=== PATIENT | male | born 1955 | race Two or more races ===

== ENCOUNTER 2017-12-21 10:08 | Emergency (ER) | payer OTHER ==
[2017-12-21 12:42] LABS: ADD MAN DIFF? NO
[2017-12-21] MEDS: LIDOCAINE/MYLANTA 40 ML BTL PO (12:43)
[2017-12-21] MEDS: SOD CHLORIDE 0.9% 1,000 ML IV (12:44)
[2017-12-21] MEDS: ASPIRIN 325 MG TAB PO (12:44)
[2017-12-21 13:28] LABS: ABNORMAL IP MESSAGE 1; BASOPHILS % 0.1 % (0.0-2.0); EOSINOPHILS # 0.1 10^3/ul (0.0-0.5); EOSINOPHILS % 0.8 % (0.0-7.0); HEMATOCRIT 42.6 % (42.0-52.0); HEMOGLOBIN 14.5 g/dl (14.0-18.0); LYMPHOCYTES # 0.5 10^3/ul (0.8-2.9); LYMPHOCYTES % 3.8 % (15.0-51.0); MEAN CORPUSCULAR HEMOGLOBIN 31.9 pg (29.0-33.0); MEAN CORPUSCULAR VOLUME 93.6 fl (82.0-101.0); MEAN PLATELET VOLUME 8.6 fl (7.4-10.4); MONOCYTE # 0.6 10^3/ul (0.3-0.9); MONOCYTES % 4.8 % (0.0-11.0); NEUTROPHIL # 11.7 10^3/ul (1.6-7.5); NEUTROPHILS % 90.1 % (39.0-77.0); PLATELET COUNT 287 10^3/UL (140-415); POSITIVE DIFF @See below; RED BLOOD COUNT 4.55 10^6/ul (4.70-6.10); RED CELL DISTRIBUTION WIDTH 12.7 % (11.5-14.5)
[2017-12-21 13:38] LABS: ANION GAP 20 (8-16); BLOOD UREA NITROGEN 35 mg/dl (7-20); CALCIUM 9.7 mg/dl (8.4-10.2); CARBON DIOXIDE 23 mmol/L (21-31); CHLORIDE 100 mmol/L (97-110); CREATININE 2.02 mg/dl (0.61-1.24); GLUCOSE 171 mg/dl (70-220); SODIUM 138 mmol/L (135-144)
[2017-12-21 13:50] LABS: B-TYPE NATRIURETIC PEPTIDE 130 PG/ML (0-125); TROPONIN-I < 0.012 ng/ml (0.00-0.12)
== END 2017-12-21 15:42 | disposition home or self-care (01) ==
LOC: FTE 10:08
DX: I44.5 Left posterior fascicular block (principal); N19 Unspecified kidney failure; I10 Essential (primary) hypertension; E11.9 Type 2 diabetes mellitus without complications
CPT/HCPCS: 36415; 71045; 80048; 83880; 84484; 85025; 93005; 99285-25

== ENCOUNTER 2018-06-29 07:55 | Emergency (ER) | payer OTHER ==
[2018-06-29 08:58] LABS: OCCULT BLOOD STOOL POSITIVE (NEGATIVE)
[2018-06-29] MEDS: SOD CHLORIDE 0.9% 1,000 ML IV (09:14)
[2018-06-29 09:17] LABS: ADD MAN DIFF? NO
[2018-06-29 09:22] LABS: BASOPHILS % 0.4 % (0.0-2.0); EOSINOPHILS # 0.1 10^3/ul (0.0-0.5); EOSINOPHILS % 2.6 % (0.0-7.0); HEMATOCRIT 43.9 % (42.0-52.0); HEMOGLOBIN 14.5 g/dl (14.0-18.0); IMMATURE GRANS #M 0 10^3/ul; IMMATURE GRANS % (M) 0 %; LYMPHOCYTES # 1.2 10^3/ul (0.8-2.9); LYMPHOCYTES % 24.9 % (15.0-51.0); MEAN CORPUSCULAR HEMOGLOBIN 30.9 pg (29.0-33.0); MEAN CORPUSCULAR VOLUME 93.4 fl (82.0-101.0); MEAN PLATELET VOLUME 8.3 fl (7.4-10.4); MONOCYTE # 0.4 10^3/ul (0.3-0.9); MONOCYTES % 8.9 % (0.0-11.0); NEUTROPHIL # 3.1 10^3/ul (1.6-7.5); NEUTROPHILS % 63.2 % (39.0-77.0); PLATELET COUNT 314 10^3/UL (140-415); RED CELL DISTRIBUTION WIDTH 12.6 % (11.5-14.5)
[2018-06-29 09:22] LABS: WHITE BLOOD COUNT 4.9 10^3/ul (4.8-10.8)
[2018-06-29] MEDS: SOD CHLORIDE 0.9% 100 ML (09:45)
[2018-06-29] MEDS: IOHEXOL 300MG/ML 150 ML BTL (09:45)
[2018-06-29 09:47] LABS: ALANINE AMINOTRANSFERASE 31 IU/L (13-69); ALBUMIN/GLOBULIN RATIO 1.25; ALKALINE PHOSPHATASE 51 IU/L (42-121); ANION GAP 17 (8-16); ASPARTATE AMINO TRANSFERASE 45 IU/L (15-46); BILIRUBIN,INDIRECT 0.3 mg/dl (0-1.1); BILIRUBIN,TOTAL 0.3 mg/dl (0.2-1.3); BLOOD UREA NITROGEN 23 mg/dl (7-20); CALCIUM 9.9 mg/dl (8.4-10.2); CARBON DIOXIDE 28 mmol/L (21-31); CHLORIDE 104 mmol/L (97-110); CREATININE 1.24 mg/dl (0.61-1.24); GLUCOSE 163 mg/dl (70-220); LIPASE 136 U/L (23-300); POTASSIUM 4.6 mmol/L (3.5-5.1); SODIUM 144 mmol/L (135-144)
[2018-06-29 10:29] LABS: ADD UMIC NO; UR ASCORBIC ACID NEGATIVE (NEGATIVE); UR BILIRUBIN (Dip) NEGATIVE (NEGATIVE); UR BLOOD (Dip) NEGATIVE (NEGATIVE); UR CLARITY CLEAR (CLEAR); UR COLOR COLORLESS (YELLOW); UR GLUCOSE (Dip) NEGATIVE (NEGATIVE); UR KETONES (Dip) NEGATIVE (NEGATIVE); UR LEUKOCYTE ESTERASE (Dip) NEGATIVE Leu/ul (NEGATIVE); UR NITRITE (Dip) NEGATIVE (NEGATIVE); UR SPECIFIC GRAVITY (Dip) 1.009 (1.003-1.030); UR TOTAL PROTEIN (Dip) NEGATIVE (NEGATIVE); UR UROBILINOGEN (Dip) NEGATIVE (NEGATIVE)
[2018-06-29 10:30] LABS: INR 0.95; PROTIME 12.8 Sec (11.9-14.9)
[2018-06-29 10:31] LABS: PARTIAL THROMBOPLASTIN TIME 34.4 Sec (25.0-35.0)
== END 2018-06-29 11:30 | disposition home or self-care (01) ==
LOC: FTE 07:55
DX: K92.1 Melena (principal)
CPT/HCPCS: 36415; 74177; 80053; 81003; 82270; 83690; 85025; 85610; 85730; 96360; 99285-25

== ENCOUNTER 2019-03-24 18:15 | Emergency (ER) | payer SELFPAY, OTHER | END 2019-03-24 18:40 | disposition left against medical advice (07) | LOC: E/R 18:15 | DX: Z53.21 Procedure and treatment not carried out due to patient leaving prior to being seen by health care provider (principal) | CPT/HCPCS: 93005 ==

== ENCOUNTER 2019-03-26 12:26 | Emergency (ER) | payer OTHER ==
[2019-03-26 16:10] LABS: ADD MAN DIFF? NO
[2019-03-26 16:14] LABS: BASOPHILS % 0.1 % (0.0-2.0); EOSINOPHILS # 0.1 10^3/ul (0.0-0.5); EOSINOPHILS % 1.1 % (0.0-7.0); HEMATOCRIT 42.7 % (42.0-52.0); HEMOGLOBIN 14.3 g/dl (14.0-18.0); LYMPHOCYTES % 10.7 % (15.0-51.0); MEAN CORPUSCULAR HEMOGLOBIN 31.2 pg (29.0-33.0); MEAN CORPUSCULAR HGB CONC 33.5 g/dl (32.0-37.0); MEAN CORPUSCULAR VOLUME 93.2 fl (82.0-101.0); MEAN PLATELET VOLUME 8.6 fl (7.4-10.4); MONOCYTE # 0.6 10^3/ul (0.3-0.9); MONOCYTES % 6.7 % (0.0-11.0); NEUTROPHIL # 7.3 10^3/ul (1.6-7.5); NEUTROPHILS % 81.1 % (39.0-77.0); PLATELET COUNT 313 10^3/UL (140-415); RED BLOOD COUNT 4.58 10^6/ul (4.70-6.10); RED CELL DISTRIBUTION WIDTH 13.6 % (11.5-14.5)
[2019-03-26 16:32] LABS: ALANINE AMINOTRANSFERASE 244 IU/L (13-69); ALBUMIN 4.6 g/dl (3.3-4.9); ALBUMIN/GLOBULIN RATIO 1.06; ALKALINE PHOSPHATASE 154 IU/L (42-121); ANION GAP 11 (5-13); ASPARTATE AMINO TRANSFERASE 139 IU/L (15-46); BILIRUBIN,INDIRECT 0.6 mg/dl (0-1.1); BILIRUBIN,TOTAL 0.6 mg/dl (0.2-1.3); BLOOD UREA NITROGEN 22 mg/dl (7-20); CALCIUM 9.8 mg/dl (8.4-10.2); CARBON DIOXIDE 27 mmol/L (21-31); CHLORIDE 105 mmol/L (97-110); CREATINE KINASE 94 IU/L (23-200); CREATININE 1.33 mg/dl (0.61-1.24); Estimated GFR 54 mL/min (>60); GLUCOSE 147 mg/dl (70-220); POTASSIUM 4.8 mmol/L (3.5-5.1); SODIUM 143 mmol/L (135-144); TOTAL PROTEIN 8.9 g/dl (6.1-8.1)
[2019-03-26 16:33] LABS: INR 1.09; PROTIME 14.2 Sec (11.9-14.9); PT RATIO 1.1
[2019-03-26 16:34] LABS: PARTIAL THROMBOPLASTIN TIME 36.9 Sec (23.0-35.0)
[2019-03-26] MEDS: BELLADONNA/PHENOBARBITAL TAB PO (16:34)
[2019-03-26] MEDS: LIDOCAINE/MYLANTA 40 ML BTL PO (16:34)
[2019-03-26 16:44] LABS: B-TYPE NATRIURETIC PEPTIDE 64 PG/ML (0-125); CK INDEX 1.4; CK-MB 1.27 ng/ml (0.0-2.4); TROPONIN-I < 0.012 ng/ml (0.000-0.120)
== END 2019-03-26 18:49 | disposition home or self-care (01) ==
LOC: E/R 12:26
DX: R07.89 Other chest pain (principal); I10 Essential (primary) hypertension; E11.9 Type 2 diabetes mellitus without complications; Z79.84 Long term (current) use of oral hypoglycemic drugs; Z87.891 Personal history of nicotine dependence
CPT/HCPCS: 36415; 71045; 80053; 82550; 82553; 83880; 84484; 85025; 85610; 85730; 93005; 99285-25

== ENCOUNTER 2019-04-30 23:06 | Emergency (ER) | payer OTHER ==
[2019-04-30 23:36] LABS: ADD MAN DIFF? NO
[2019-04-30 23:38] LABS: WHITE BLOOD COUNT 15.8 10^3/ul (4.8-10.8)
[2019-04-30 23:38] LABS: BASOPHILS % 0.2 % (0.0-2.0); EOSINOPHILS # 0.1 10^3/ul (0.0-0.5); EOSINOPHILS % 0.4 % (0.0-7.0); HEMATOCRIT 41.9 % (42.0-52.0); LYMPHOCYTES # 0.8 10^3/ul (0.8-2.9); LYMPHOCYTES % 5.1 % (15.0-51.0); MEAN CORPUSCULAR HEMOGLOBIN 30.8 pg (29.0-33.0); MEAN CORPUSCULAR HGB CONC 33.4 g/dl (32.0-37.0); MEAN CORPUSCULAR VOLUME 92.3 fl (82.0-101.0); MEAN PLATELET VOLUME 8.2 fl (7.4-10.4); MONOCYTES % 6.1 % (0.0-11.0); NEUTROPHIL # 13.9 10^3/ul (1.6-7.5); NEUTROPHILS % 87.9 % (39.0-77.0); PLATELET COUNT 306 10^3/UL (140-415); RED BLOOD COUNT 4.54 10^6/ul (4.70-6.10)
[2019-05-01 00:04] LABS: ANION GAP 10 (5-13); BLOOD UREA NITROGEN 24 mg/dl (7-20); CARBON DIOXIDE 29 mmol/L (21-31); CHLORIDE 96 mmol/L (97-110); Estimated GFR > 60 mL/min (>60); GLUCOSE 227 mg/dl (70-220); POTASSIUM 4.3 mmol/L (3.5-5.1); SODIUM 135 mmol/L (135-144)
[2019-05-01 00:16] LABS: B-TYPE NATRIURETIC PEPTIDE 28 PG/ML (0-125); TROPONIN-I < 0.012 ng/ml (0.000-0.120)
[2019-05-01] MEDS: ONDANSETRON 4 MG INJ IV (00:18)
[2019-05-01] MEDS: morphine 2 MG INJ IV (00:18)
[2019-05-01 00:24] LABS: ALANINE AMINOTRANSFERASE 226 IU/L (13-69); ALBUMIN 4.7 g/dl (3.3-4.9); ALKALINE PHOSPHATASE 148 IU/L (42-121); ASPARTATE AMINO TRANSFERASE 260 IU/L (15-46); BILIRUBIN,INDIRECT 0.6 mg/dl (0-1.1); BILIRUBIN,TOTAL 0.6 mg/dl (0.2-1.3); LIPASE 296 U/L (23-300); TOTAL PROTEIN 8.2 g/dl (6.1-8.1)
[2019-05-01] MEDS ORDERED: PANTOPRAZOLE (EC) 40 MG TAB PO (00:30)
== END 2019-05-01 01:46 | disposition home or self-care (01) ==
LOC: E/R 23:06
DX: K80.20 Calculus of gallbladder without cholecystitis without obstruction (principal); E11.9 Type 2 diabetes mellitus without complications; J44.9 Chronic obstructive pulmonary disease, unspecified; I10 Essential (primary) hypertension; E03.9 Hypothyroidism, unspecified; Z79.84 Long term (current) use of oral hypoglycemic drugs
CPT/HCPCS: 36415; 71045; 74176; 76705; 80048; 80076; 83690; 83880; 84484; 85025; 93005; 96374; 96375; 99285-25

== ENCOUNTER 2019-05-01 21:47 | Emergency (ER) | payer OTHER | END 2019-05-02 00:01 | disposition home or self-care (01) | LOC: E/R 05-02 00:01 | DX: K80.50 Calculus of bile duct without cholangitis or cholecystitis without obstruction (principal); E11.9 Type 2 diabetes mellitus without complications; I10 Essential (primary) hypertension; J44.9 Chronic obstructive pulmonary disease, unspecified; E03.9 Hypothyroidism, unspecified; Z79.84 Long term (current) use of oral hypoglycemic drugs | CPT/HCPCS: 99282; Z7502 ==